=== PATIENT | female | born 2000 | race Caucasian/White ===

== ENCOUNTER 2019-06-21 04:56 | Emergency (ER) | payer SELFPAY ==
[~2019-06-21] VITALS: Ht 160 cm; Wt 68.0 kg
[2019-06-21 04:56] VITALS: BP 110/91
--- NOTE | 2019-06-21 04:56 | NUR ---
PT BIB [facility], PREBOOK. TAKEN TO [facility]AIR B
[2019-06-21 05:07] VITALS: BP 110/91
--- NOTE | 2019-06-21 05:07 | NUR ---
PATIENT BIB [facility] [employer] [facility]. PATIENT EXAMINED BY DR. HODGE. PATIENT MEDICALLY CLEARED AND RELEASED IN CUSTODY IN STABLE CONDITION. ORIGINAL PRE-BOOK FORM GIVEN TO [facility] OFF[facility].
== END 2019-06-21 05:07 ==
LOC: MED 04:56
DX: Z04.1 Encounter for examination and observation following transport accident (principal); V89.2XXA Person injured in unspecified motor-vehicle accident, traffic, initial encounter; Y93.89 Activity, other specified; Y92.410 Unspecified street and highway as the place of occurrence of the external cause; Y99.8 Other external cause status
CPT/HCPCS: 99283